=== PATIENT | male | born 1990 | race Caucasian/White ===

== ENCOUNTER 2016-07-10 19:35 | Emergency (ER) | payer OTHER ==
[2016-07-10 19:49] VITALS: BP 119/50
--- NOTE | 2016-07-10 20:54 | UC ---
Dizzy HPI HPI Summary: 3 DAYS OF INTERMITTENT DIZZINESS, SOUSA AND MILD NAUSEA. LASTS FOR ABOUT 5 SECONDS. EPISODES OCCUR AT RANDOM WITH NO CLEAR TRIGGER. DENIES SOB, CP, FEVER, PALPITATIONS. NO NEW MEDS. FEELS SLIGHTLY UNSTEADY ON HIS FEET IF HE HAPPENS TO BE WALKING WHEN IT HITS. CONCERNED ABOUT DIABETES IT RUNS IN THE FAMILY. JUST MOVED HERE FROM [place] AND HAS NOT SET UP WITH PRIMARY CARE YET. DENIES CAFFEINE INTAKE. IS HAVING A HARD TIME FALLING ASLEEP AT NIGHT. NO UNUSUAL STRESS. - History Of Current Complaint Chief Complaint: UCGeneralIllness Stated Complaint: DIZZINESS Time Seen by Provider: 07/10/16 20:15 Hx Obtained From: Patient Onset/Duration: Sudden Onset, Lasting Days, Still Present Timing: Seconds Severity Initially: Moderate Severity Currently: Moderate Pain Intensity: 5 Pain Scale Used: 0-10 Numeric Character: Lightheaded, Dizzy Aggravating Factor(s): Nothing Alleviating Factor(s): Nothing Associated Signs And Symptoms: Positive: Nausea, Unsteady Gait. Negative: Vomiting, Diaphoresis, Tinnitus, Chest Pain, SOB, Palpitations, Visual Changes, Decreased Oral Intake, Change In Medication, Change In Diet, OTC Medications - Allergies/Home Medications Allergies/Adverse Reactions: Allergies Allergy/AdvReac Type Severity Reaction Status Date / Time No Known Allergies Allergy Verified 07/10/16 19:49 Home Medications: Home Medications NK [No Home Medications Reported] 07/10/16 [History Confirmed 07/10/16] PMH/Surg Hx/FS Hx/Imm Hx Previously Healthy: Yes - Surgical History Surgical History: None - Family History Known Family History: Positive: Hypertension, Diabetes - Social History Alcohol Use: None Substance Use Type: None Smoking Status (MU): Never Smoked Tobacco Review of Systems Constitutional: Other - DIZZY Eyes: Negative Respiratory: Negative Cardiovascular: Negative Gastrointestinal: Other - NAUSEA Genitourinary: Negative Neurological: Other - DIZZY All Other Systems Reviewed And Are Negative: Yes Physical Exam Triage Information Reviewed: Yes Appearance: Well-Appearing, No Pain Distress, Well-Nourished Vital Signs: Initial Vital Signs Temp 97.8 F 07/10/16 19:43 Pulse 75 07/10/16 19:43 Resp 12 07/10/16 19:43 BP 119/50 07/10/16 19:43 Pulse Ox 99 07/10/16 19:43 Vital Signs Reviewed: Yes Eyes: Positive: Conjunctiva Clear ENT: Positive: Hearing grossly normal, Pharynx normal, TMs normal Neck: Positive: Supple, Nontender, No Lymphadenopathy Respiratory Exam: Normal Cardiovascular Exam: Normal Abdomen Description: Positive: Soft Musculoskeletal: Positive: ROM Intact, No Edema Neurological: Positive: Alert, Muscle Tone Normal Psychological: Positive: Normal Response To Family, Age Appropriate Behavior Skin: Negative: rashes Diagnostics - EKG Cardiac Rate: NL - 67BPM Cardiac Rhythm: Sinus: Normal Ectopy: None ST Segment: Normal Dizzy Course/Dx - Differential Dx/Diagnosis Differential Diagnosis/HQI/PQRI: Anxiety, Benign Paroxysmal Positional Vertigo, Dysrhythmia, Metabolic Abnormality, Other - THYROID DYSFUNCTION, ANEMIA, VALVULAR DISEASE, INNER EAR PATHOLOGY Provider Diagnoses: DIZZINESS, NOS Discharge - Discharge Plan Condition: Stable Disposition: HOME Patient Education Materials: Dizziness (ED) Additional Instructions: Dizziness, non-specific: Dizziness means a sense of severe lightheadedness or instability. It can be a symptom of many different diseases, and is a side effect of many medicines. It can be caused by high blood pressure, or by low blood pressure. It can even be a symptom of anxiety. Dizziness can also happen to perfectly healthy people. Sometimes it's caused by over-exercise, mild dehydration, lack of sleep, or poor nutrition. Sometimes we find no explanation. We try to diagnose the exact cause of dizziness, such as dehydration, fever , diabetes, low heart rate, etc. Sometimes it's obvious right away. If not, we do testing. At this time, there's no evidence of a serious problem requiring hospitalization. You should get enough rest, exercise moderately, and get plenty of fluids. Continue your usual medicines unless the doctor has specifically told you to change them. When you feel the first symptoms suggesting you might faint, sit or squat down as quickly as you can. If symptoms don't go away quickly, lie down. Call the doctor or return if you are worsening or if new symptoms develop. YOU NEED A MORE INVOLVED WORK-UP THAN WHAT WE ARE ABLE TO PROVIDE IN URGENT CARE. CONSIDER BLOOD WORK AND IMAGING. YOU MAY BENEFIT FROM ENT OR CARDIAC EVALUATION DEPENDING ON YOUR SYMPTOM PROGRESSION. PLEASE GET ESTABLISHED WITH A PCP. YOUR EKG WAS UNREMARKABLE TODAY. ENSURE YOU ARE STAYING WELL HYDRATED AND GETTING ENOUGH REST. AVOID STIMULANTS LIKE ENERGY DRINKS. TRY TO MAINTAIN A REGULAR DAILY ROUTINE. GO TO THE ER WITHOUT FAIL IF YOUR SYMPTOMS WORSEN. CALL THE NUMBER BELOW FOR ASSISTANCE IN ESTABLISHING WITH A PCP An additional resource available to assist in finding the appropriate physician for your health care needs is the [facility] ([facility]). You may contact them by calling [phone].
== END 2016-07-10 20:50 | disposition home or self-care (01) ==
LOC: UCEAST 19:35
DX: R42 Dizziness and giddiness (principal); R11.0 Nausea
CPT/HCPCS: 93005; 99202; G0463

== ENCOUNTER 2016-07-11 21:35 | Emergency (ER) | payer OTHER ==
[2016-07-11] MEDS ORDERED: Meclizine TAB* 12.5 MG PO ONE (22:11)
--- NOTE | 2016-07-11 22:42 | RAD ---
INDICATION: Dizziness COMPARISON: None TECHNIQUE: PA and lateral dual-energy views were obtained. FINDINGS: Bones/Soft Tissues: There are no acute bony findings. Cardiomediastinal: The cardiomediastinal silhouette is normal. Lungs: There are no infiltrates. Pleura: There are no pleural effusions. Other: None IMPRESSION: NORMAL CHEST.
--- NOTE | 2016-07-11 22:42 | RAD ---
INDICATION: Dizziness COMPARISON: None TECHNIQUE: Noncontrast axial source images were acquired from the skull base to the vertex. FINDINGS: Ventricles/sulci: The ventricles and cisterns are normal in size and configuration for age. Brain parenchyma: There is no focal parenchymal finding, evidence of intracranial mass, or intracranial mass effect. Intracranial hemorrhage:None. Extra-axial spaces: There are no abnormal extra axial fluid collections or evidence of extra-axial mass. Calvarium: There is no calvarial fracture or other calvarial abnormality. Scalp: There is no evidence of scalp or extracalvarial soft tissue abnormality. Paranasal sinuses/mastoid: The paranasal sinuses and mastoid air cells are clear. Other: None. IMPRESSION: NEGATIVE EXAMINATION
[2016-07-11 23:01] LABS: Hematocrit 47 % (42-52); Hemoglobin 15.7 g/dl (14.0-18.0); Mean Corpuscular HGB Conc 34 g/dl (31-36); Mean Corpuscular Hemoglobin 28 pg (27-31); Mean Corpuscular Volume 83 fL (80-94); Mean Platelet Volume 7 um3 (7.4-10.4); Red Blood Count 5.61 10^6/ul (4.0-5.4); Red Cell Distribution Width 13 % (10.5-15); White Blood Count 9.2 10^3/ul (3.5-10.8)
[2016-07-11 23:02] LABS: Urine Bilirubin Negative (Negative); Urine Glucose Negative (Negative); Urine Nitrite Negative (Negative)
[2016-07-11 23:14] LABS: Albumin 4.7 g/dL (3.2-5.2); BUN/Creatinine Ratio 18.2 (8-20); Calcium 9.9 mg/dL (8.6-10.3); EGFR Non-African American 107.3 (>60); Globulin 2.9 g/dL (2-4); Potassium 3.7 mmol/L (3.5-5.0); Total Bilirubin 0.4 mg/dL (0.2-1.0); Total Protein 7.6 g/dL (6.4-8.9)
[2016-07-11 23:29] LABS: TSH (Thyroid Stimulating Horm) 2.06 mcIU/mL (0.34-5.60)
[2016-07-11 23:53] VITALS: BP 122/72
--- NOTE | 2016-07-12 00:30 | ED ---
Kolby Issa Adam, scribed for Jeffery Malin on 07/11/16 at 2156 . Dizziness - HPI Summary HPI Summary: Pt is a 25 year old male presenting with intermittent dizziness for the past 4- 5 days. He states that the dizziness comes randomly, often when waking up, trying to sleep, or standing up. He describes it as a room-spinning sensation. Pt also reports SOUSA's, ear aches, and he states that he felt palpitations earlier (irregular beat x2). He deneis any CP, SOB, abdominal pain, weakness, numbness, or fever. No PMHx. FMHx of DM. - History Of Current Complaint Chief Complaint: EDDizziness Stated Complaint: DIZZINESS Time Seen by Provider: 07/11/16 21:50 Hx Obtained From: Patient Onset/Duration: Still Present Timing: Intermittent Episode Lasting - Minutes Severity Initially: Moderate Severity Currently: Moderate Character: Room Spinning Aggravating Factor(s): Nothing Alleviating Factor(s): Nothing Associated Signs And Symptoms: Positive: Other: - Headaches - Allergies/Home Medications Allergies/Adverse Reactions: Allergies Allergy/AdvReac Type Severity Reaction Status Date / Time No Known Allergies Allergy Verified 07/11/16 21:42 PMH/Surg Hx/FS Hx/Imm Hx Previously Healthy: Yes - Immunization History Date of Influenza Vaccine: none Infectious Disease History: No Infectious Disease History: Denies: Traveled Outside the [place] in Last 30 Days - Family History Known Family History: Positive: Hypertension, Diabetes - Social History Occupation: Unemployed Lives: Alone Alcohol Use: Rare Hx Substance Use: No Substance Use Type: Reports: None Hx Tobacco Use: No Smoking Status (MU): Never Smoked Tobacco Review of Systems Negative: Fever Positive: Ear Ache Neurological: Other - Dizziness Positive: Headache. Negative: Weakness, Numbness All Other Systems Reviewed And Are Negative: Yes Physical Exam Triage Information Reviewed: Yes Vital Signs On Initial Exam: Initial Vitals Temp Pulse Resp BP Pulse Ox 99.1 F 85 15 125/90 97 07/11/16 21:36 07/11/16 21:36 07/11/16 21:36 07/11/16 21:36 07/11/16 21:36 Vital Signs Reviewed: Yes Appearance: Positive: Well-Appearing, No Pain Distress Skin: Positive: Warm, Skin Color Reflects Adequate Perfusion, Dry Head/Face: Positive: Normal Head/Face Inspection Eyes: Positive: EOMI, BRIT ENT: Positive: Normal ENT inspection Neck: Positive: Supple, Nontender Respiratory/Lung Sounds: Positive: Clear to Auscultation, Breath Sounds Present Cardiovascular: Positive: RRR, Pulses are Symmetrical in both Upper and Lower Extremities Abdomen Description: Positive: Nontender, Soft Bowel Sounds: Positive: Present Musculoskeletal: Positive: Normal, Strength/ROM Intact Neurological: Positive: Normal, Sensory/Motor Intact, Alert, Oriented to Person Place, Time - [place] Coma Scale Coma Scale Total: 15 Diagnostics - Vital Signs Vital Signs Temp Pulse Resp BP Pulse Ox 07/11/16 21:36 99.1 F 85 15 125/90 97 - Laboratory Result Diagrams: 07/11/16 22:45 07/11/16 22:45 Lab Statement: Any lab studies that have been ordered have been reviewed, and results considered in the medical decision making process. - Radiology CXR Radiology Interpretation Completed By: Radiologist - IMPRESSION: NORMAL CHEST. - CT BRAIN CT Interpretation Completed By: Radiologist - IMPRESSION: NEGATIVE EXAMINATION. - EKG 22:44 Cardiac Rate: NL - 68 BPM EKG Rhythm: Sinus Rhythm - Normal - Additional Comments Diagnostic Additional Comments: Troponin I - 0.00 Dizzy Course/Dx - Diagnoses Provider Diagnoses: Dizziness Discharge - Discharge Plan Condition: Stable Disposition: HOME Patient Education Materials: Dizziness (ED) Referrals: [facility] [place] [facility]IC[place] REFERRAL [Outside] Additional Instructions: Follow up with [facility] [place] Physician Referral in 3 days. The documentation as recorded by the Kolby plata Adam accurately reflects the service I personally performed and the decisions made by , Jeffery Malin.
== END 2016-07-11 23:52 | disposition home or self-care (01) ==
LOC: ED 21:35
DX: R42 Dizziness and giddiness (principal); H92.09 Otalgia, unspecified ear; R51 Headache
CPT/HCPCS: 36415; 70450; 71020; 80053; 81003; 82550; 84443; 84484; 85025; 93005; 99282; A9270-GY